=== PATIENT | female | born 1965 | race Caucasian/White ===

== ENCOUNTER 2017-08-27 12:33 | Emergency (ER) | payer BC, OTHER ==
[~2017-08-27] VITALS: Ht 165.1 cm; Wt 73.8 kg
[~2017-08-27 12:33] MED LIST: DARV PO; DOXY100T PO; SULF-154 PO; Z.0.NO CURRENT MEDS
[2017-08-27 12:42] VITALS: BP 131/73; PULSE 94; RESP 16; TEMP 98.4; O2SAT 99
[2017-08-27] MEDS ORDERED: SODIUM CHLOR 0.9% 1000 ML INJ 1,000 ML IV SCH (13:17)
[2017-08-27 13:20] VITALS: O2SAT 99
--- NOTE | 2017-08-27 13:22 | PD ---
HPI Chief Complaint: GI Complaint Time Seen by Provider: 13:17 Travel History International Travel<30 days: No Contact w/Intl Traveler<30days: No Traveled to known affect area: No History of Present Illness HPI 52-year-old female patient with previous history of chronic sinusitis, bronchitis, has had 5 weeks history of coughing, sinus pressure, and had been treated for bronchitis 5 weeks ago with Augmentin, presents to the ER today for several days history of nausea, vomiting, feeling tired, ongoing coughing. She denies any abdominal pains, diarrhea, fevers, or any other symptoms. Modifying Factors: None Associated Signs & Symptoms: Coughing, tiredness, nausea and vomiting Risk Factors: Orchitis, chronic sinusitis PFSH Past Medical History Diminished Hearing: No Menopausal: Yes Social History Alcohol Use: No Tobacco Use: No Substance Use: No Allergies-Medications (Allergen,Severity, Reaction): Coded Allergies: phenazopyridine (Unverified Allergy, Severe, HIVES, 08/27/17) codeine (Unverified Adverse Reaction, Severe, NAUSEA, 08/27/17) hydromorphone (Unverified Adverse Reaction, Mild, NAUSEA, 08/27/17) Reported Meds & Prescriptions Reported Meds & Active Scripts Active Reported [estrogen] Review of Systems Except as stated in HPI: all other systems reviewed are Neg Physical Exam Narrative GENERAL: Well-developed middle-aged female patient currently in mild distress. Awake and oriented 3. SKIN: Focused skin assessment warm/dry. HEAD: Atraumatic. Normocephalic. EYES: Pupils equal and round. No scleral icterus. No injection or drainage. ENT: No nasal bleeding or discharge. Mucous membranes pink and moist. NECK: Trachea midline. No JVD. CARDIOVASCULAR: Regular rate and rhythm. No murmur appreciated. RESPIRATORY: No accessory muscle use. Clear to auscultation. Breath sounds equal bilaterally. GASTROINTESTINAL: Abdomen soft, non-tender, nondistended. Hepatic and splenic margins not palpable. MUSCULOSKELETAL: No obvious deformities. No clubbing. No cyanosis. No edema. NEUROLOGICAL: Awake and alert. No obvious cranial nerve deficits. Motor grossly within normal limits. Normal speech. PSYCHIATRIC: Appropriate mood and affect; insight and judgment normal. Data Data Last Documented VS Vital Signs Date Time Temp Pulse Resp B/P (MAP) Pulse Ox O2 Delivery O2 Flow Rate FiO2 08/27/17 13:20 99 08/27/17 12:42 98.4 94 16 131/73 (92) Orders Orders Complete Blood Count With Diff (08/27/17 13:17) Comprehensive Metabolic Panel (08/27/17 13:17) Lipase (08/27/17 13:17) Urinalysis - C+S If Indicated (08/27/17 13:17) Iv Access Insert/Monitor (08/27/17 13:17) Ecg Monitoring (08/27/17 13:17) Oximetry (08/27/17 13:17) Ondansetron Inj (Zofran Inj) (08/27/17 13:30) Sodium Chlor 0.9% 1000 Ml Inj (Ns 1000 M (08/27/17 13:17) Sodium Chloride 0.9% Flush (Ns Flush) (08/27/17 13:30) Chest, Single Ap (08/27/17 13:17) Influenzae A/B Antigen (08/27/17 13:17) Promethazine Inj (Phenergan Inj) (08/27/17 14:30) Ed Discharge Order (08/27/17 14:22) Labs Laboratory Tests Test 08/27/17 13:20 White Blood Count 8.2 TH/MM3 Red Blood Count 4.55 MIL/MM3 Hemoglobin 13.7 GM/DL Hematocrit 40.9 % Mean Corpuscular Volume 89.8 FL Mean Corpuscular Hemoglobin 30.0 PG Mean Corpuscular Hemoglobin Concent 33.4 % Red Cell Distribution Width 12.0 % Platelet Count 249 TH/MM3 Mean Platelet Volume 7.3 FL Neutrophils (%) (Auto) 88.0 % Lymphocytes (%) (Auto) 8.7 % Monocytes (%) (Auto) 2.9 % Eosinophils (%) (Auto) 0.1 % Basophils (%) (Auto) 0.3 % Neutrophils # (Auto) 7.3 TH/MM3 Lymphocytes # (Auto) 0.7 TH/MM3 Monocytes # (Auto) 0.2 TH/MM3 Eosinophils # (Auto) 0.0 TH/MM3 Basophils # (Auto) 0.0 TH/MM3 CBC Comment DIFF FINAL Differential Comment Urine Collection Type CLEAN CATCH Urine Color YELLOW Urine Turbidity CLEAR Urine pH 8.0 Urine Specific [place] 1.021 Urine Protein NEG mg/dL Urine Glucose (UA) NEG mg/dL Urine Ketones 80 OR GREATER mg/dL Urine Occult Blood NEG Urine Nitrite NEG Urine Bilirubin NEG Urine Leukocyte Esterase NEG Urine Squamous Epithelial Cells 0-5 /hpf Microscopic Urinalysis Comment CULT NOT INDICATED Blood Urea Nitrogen 8 MG/DL Creatinine 0.65 MG/DL Random Glucose 121 MG/DL Total Protein 7.9 GM/DL Albumin 3.8 GM/DL Calcium Level 8.9 MG/DL Alkaline Phosphatase 57 U/L Aspartate Amino Transf (AST/SGOT) 14 U/L Alanine Aminotransferase (ALT/SGPT) 23 U/L Total Bilirubin 0.3 MG/DL Sodium Level 136 MEQ/L Potassium Level 3.5 MEQ/L Chloride Level 104 MEQ/L Carbon Dioxide Level 23.0 MEQ/L Anion Gap 9 MEQ/L Estimat Glomerular Filtration Rate 96 ML/MIN Lipase 194 U/L MDM Medical Decision Making Medical Screen Exam Complete: Yes Emergency Medical Condition: Yes Medical Record Reviewed: Yes Interpretation(s) Laboratory Tests Test 08/27/17 13:20 Neutrophils (%) (Auto) 88.0 % (16.0-70.0) Lymphocytes (%) (Auto) 8.7 % (9.0-44.0) Lymphocytes # (Auto) 0.7 TH/MM3 (1.0-4.8) Urine Ketones 80 OR GREATER mg/dL (NEG) Random Glucose 121 MG/DL (74-106) Aspartate Amino Transf (AST/SGOT) 14 U/L (15-37) Last 24 hours Impressions Chest X-Ray 08/27/17 1317 Signed Impressions: Service Date/Time: Sunday, August 27, 2017 13:24 - CONCLUSION: The lungs are clear. Yash Curry MD Differential Diagnosis Gastroenteritis versus pneumonia versus dehydration versus influenza versus metabolic issues Narrative Course Abdomen is benign I do not suspect an acute intra-abdominal process. Chest x- ray did not show any signs of acute pulmonary processes. Patient was initially given IV fluids and Zofran, did not have any further vomiting episodes in the ER. However, she was still nauseous and Phenergan was also given. Lab work did not indicate any significant metabolic issues or dehydration. At this point , my plan would be to release her with follow-up to primary care doctor. We will give her further symptomatically for nausea and vomiting. Return for worsening symptoms as needed. Influenza testing was negative as well. Diagnosis Primary Impression: Nausea and vomiting Med/Other Pt SpecificInfo: Prescription(s) given Scripts Promethazine (Phenergan) 25 Mg Tablet 25 MG PO Q6H Y for NAUSEA OR VOMITING, #7 TAB 0 Refills Prov: Lion Chaney MD 08/27/17 Disposition: 01 DISCHARGE HOME Condition: Stable Lion Chaney MD Aug 27, 2017 13:22
[2017-08-27] MEDS ORDERED: SODIUM CHLORIDE 0.9% FLUSH 10 ML FLUSH IV FLUSH PRN (13:30)
[2017-08-27] MEDS ORDERED: ONDANSETRON HCL 4 MG/2 ML VIAL IVP ONE (13:30)
--- NOTE | 2017-08-27 13:40 | RADRPT ---
EXAM DATE/TIME: 08/27/2017 13:24 [facility] COMPARISON: No previous studies available for comparison. INDICATIONS : Bronchitis 5 weeks ago still coughing. Patient now has headache, nausea, & vomiting. MEDICAL HISTORY : None. SURGICAL HISTORY : None. ENCOUNTER: Initial ACUITY: 1 month PAIN SCORE: 0/10 LOCATION: chest FINDINGS: A single view of the chest demonstrates the lungs to be symmetrically aerated without evidence of mas s, infiltrate or effusion. The cardiomediastinal contours are unremarkable. Osseous structures are intact. CONCLUSION: The lungs are clear. Yash Curry MD on August 27, 2017 at 13:39 Board Certified Radiologist. This report was verified electronically.
[2017-08-27] MEDS ORDERED: estrogen (13:46)
[2017-08-27 13:53] LABS: AUTOMATED NEUTROPHIL # 7.3 TH/MM3 (1.8-7.7); BASOPHIL % 0.3 % (0.0-2.0); EOSINOPHIL % 0.1 % (0.0-4.0); HEMATOCRIT 40.9 % (35.0-46.0); HEMOGLOBIN 13.7 GM/DL (11.6-15.3); LYMPH % 8.7 % (9.0-44.0); LYMPHOCYTE # 0.7 TH/MM3 (1.0-4.8); MEAN CELL VOLUME 89.8 FL (80.0-100.0); MEAN CORPUSCULAR HGB CONC 33.4 % (32.0-36.0); MEAN PLATELET VOLUME 7.3 FL (7.0-11.0); MONO % 2.9 % (0.0-8.0); MONOCYTE # 0.2 TH/MM3 (0-0.9); PLATELET COUNT 249 TH/MM3 (150-450); RED BLOOD COUNT 4.55 MIL/MM3 (4.00-5.30); WHITE BLOOD COUNT 8.2 TH/MM3 (4.0-11.0)
[2017-08-27 13:55] LABS: BILIRUBIN, URINE NEG (NEG); BLOOD, URINE NEG (NEG); GLUCOSE,URINE NEG (NEG); KETONE, URINE 80 OR GREATER mg/dL (NEG); NITRITE,URINE NEG (NEG); URINE LEUKOCYTE ESTERASE NEG (NEG)
[2017-08-27 14:01] LABS: CHLORIDE 104 MEQ/L (98-107); SODIUM (NA) 136 MEQ/L (136-145)
[2017-08-27 14:04] LABS: CALCIUM 8.9 MG/DL (8.5-10.1)
[2017-08-27 14:05] LABS: ALBUMIN 3.8 GM/DL (3.4-5.0); BLOOD UREA NITROGEN 8 MG/DL (7-18); GLUCOSE,RANDOM 121 MG/DL (74-106); URINE COLOR YELLOW (YELLW/STRAW)
[2017-08-27 14:06] LABS: SQUAMOUS EPITHELIAL CELL URINE 0-5 /hpf (0-5)
[2017-08-27 14:08] LABS: ALT (GPT) 23 U/L (10-53); AST (GOT) 14 U/L (15-37); CREATININE 0.65 MG/DL (0.50-1.00); GLOMERULAR FILTRATION RATE 96 ML/MIN (>89)
[2017-08-27 14:10] LABS: TOTAL BILIRUBIN ADULT 0.3 MG/DL (0.2-1.0); TOTAL PROTEIN 7.9 GM/DL (6.4-8.2)
[2017-08-27 14:11] LABS: ALKALINE PHOSPHATASE 57 U/L (45-117)
[2017-08-27] MEDS ORDERED: PROM25TA10 PO (14:24)
[2017-08-27] MEDS ORDERED: PROMETHAZINE INJ 25 MG/ML VIAL IM ONE (14:30)
[2017-08-27 14:38] VITALS: BP 124/70; PULSE 86; RESP 20; O2SAT 99
== END 2017-08-27 15:30 | disposition home or self-care (01) ==
LOC: PHED 12:33
DX: R11.2 Nausea with vomiting, unspecified (principal); J40 Bronchitis, not specified as acute or chronic; J32.9 Chronic sinusitis, unspecified
CPT/HCPCS: 71045; 80053; 81001; 83690; 85025; 87804; 96361; 96372; 96374; 99284; J2405; J2550; J7030